=== PATIENT | male | born 1995 | race Caucasian/White ===

== ENCOUNTER 2017-06-25 11:42 | Emergency (ER) | payer BC, OTHER ==
[2017-06-25 11:52] VITALS: BMI 36.5
[2017-06-25] MEDS ORDERED: NS 1000 ML 1,000 ML IV ONE ×2 (12:25→14:40)
--- NOTE | 2017-06-25 12:25 | DR.GENAD ---
HPI - PCP Primary Care Physician: sumit - Complaint/Symptoms Chief Complaint Doctors Comments: Patient is alert in NAD history as stated by chief complaint. Chief Complaint:: Patient c/o c/c/c symptoms for a week was seen by PCP and started on antibiotics- unsure of name and taking over the counter c/c/c meds. Patient states "I just can't breath" Self Treatment fo Chief Complaint: otc meds- cefdinir 300mg and dexilant dr 60mg - Source History Provided: Patient - Mode of Arrival Mode of Arrival: Ambulatory - Timing Onset of Chief Complaint: 06/19/17 PMH - PMH Past Medical History: Yes Past Medical History Comment: mrsa of stomach Past Surgical History: Yes Surgical History: Appendectomy, Cholecystectomy Past Surgical History Comment: left hip surgery - Family History History of Family Medical Conditions: Yes Family Medical History: Hypertension - Social History Does patient currently use any type of tobacco product: Yes Have you used tobacco products in the last 12 months: Yes Type of Tobacco Use: Smokeless Does any household member use tobacco: No Alcohol Use: Rarely Do you use any recreational Drugs:: No Lives With: Family Lives Where: Home - infectious screening In the last 2 months have you had wt loss of >10#?: NO Have you had fever, night sweats or hemotysis?: No Have you traveled outside the country in the last 6 months?: No Isolation: Standard ROS - Review of Systems Eyes: No Symptoms Reported ENTM: No Symptoms Reported Respiratoy: No Symptoms Reported Cardiovascular: No Symptoms Reported Gastrointestinal/Abdominal: No Symptoms Reported Genitourinary: No Symptoms Reported Neurological: No Symptoms Reported Musculoskeletal: No Symptoms Reported Integumentary: No Symptoms Reported Hematologic/Lymphatic: No Symptoms Reported Endocrine: No Symptoms Reported Psychiatric: No Symptoms Reported All Other Systems: Reviewed and Negative PE - Vital Signs Vitals: Temperature 97.8 F Pulse Rate 108 Respiratory Rate 18 Blood Pressure 147/96 O2 Sat by Pulse Oximetry 97 - General General Appearance: Alert, In No Apparent Distress - Head Head Exam: Normal Inspection, Atraumatic - Eyes Eye exam: Normal Appearance, PERRL, EOMI - ENT ENT Exam: Normal Exam External Ear Exam: Normal External Inspection TM/Canal Exam: Bilateral Normal Nose Exam: Normal Nose Exam, Sinus Tenderness Mouth Exam: Normal Inspection Throat Exam: Normal Inspection - Neck Neck Exam: Normal Inspection - Chest Chest Inspection: Normal Inspection - Respiratory Respiratory Exam: Normal Lung Sounds Bilat Respiratory Exam: Bilateral Clear to Auscultation - Cardiovascular Cardiovascular Exam: Regular Rate, Normal Rhythm - Abdominal Exam Abdominal Exam: Normal Inspection, Normal Bowel Sounds Abdominal Tenderness: negative: RUQ, RLQ, LUQ, LLQ, Epigastrium, Suprapubic, Diffuse, Mild, Moderate, Severe, Other - Extremities Extremities Exam: Normal Inspection, Full ROM - Back Back Exam: Normal Inspection, Full ROM - Neurologic Neurological Exam: Alert, Oriented X3, CN II-XII Intact - Psychiatric Psychiatric Exam: Normal Affect - Skin Skin Exam: Warm, Dry, Intact Course - Reevaluation 1st: Unchanged - Education/Counseling Education/Counseling: Family Educated On: Treatment, Diagnosis, Prognosis, Needs for Follow Up ROR - Labs Reviewed Laboratory: Influenza Type A (PCR) Negative (NEGATIVE) 06/25/17 12:32 Influenza Type B (PCR) Negative (NEGATIVE) 06/25/17 12:32 - Diagnosis Discharge Problem: Influenza-like illness - Discharge Plan Condition: Stable - Follow ups/Referrals Follow ups/Referrals: Sonu Chapman [Primary Care Provider] - 3 days - Instructions
[2017-06-25] MEDS ORDERED: TORADOL 30 MG VIAL IVP ONE (12:28)
[2017-06-25] MEDS ORDERED: NS 1000 ML 1,000 ML ONE ×2 (12:33→14:15)
[2017-06-25] MEDS ORDERED: TORADOL 30 MG VIAL ONE (12:33)
[2017-06-25 14:41] LABS: BASOPHILS # (AUTO) 0.1 X10^3/uL (0.0-0.1); EOSINOPHILS # (AUTO) 0.2 x10^3/uL (0.0-0.2); HEMOGLOBIN 16.3 g/dL (13.5-18.0); MONOCYTES # (AUTO) 0.6 x10^3/uL (0.3-0.8)
[2017-06-25 14:49] LABS: BLOOD UREA NITROGEN 11 mg/dL (7-18); CALCIUM 8.6 mg/dL (8.5-10.1); CARBON DIOXIDE 25.3 mmol/L (21-32); CHLORIDE 104 mmol/L (98-107); SODIUM 140 mmol/L (136-145); eGFR BLACK RACES > 60 (>60); eGFR NON BLACK RACES > 60 (>60)
--- NOTE | 2017-06-25 15:04 | RAD ---
Examination: Portable AP chest History: Cough cold and congestion Findings: Normal heart size with clear lungs and pleural spaces. Impression: No acute process demonstrated. Reported By:
[2017-06-25 15:11] LABS: BASOPHILS % (AUTO) 0.6 % (0.2-1.0); HEMATOCRIT 45.5 % (42.0-54.0); LYMPHOCYTES # (AUTO) 2.1 X10^3/uL (1.3-2.9); LYMPHOCYTES % (AUTO) 19.7 % (21.0-51.0); MEAN CORPUSCULAR HEMOGLOBIN 28.1 pg (27.0-34.0); MEAN CORPUSCULAR HGB CONC 35.8 g/dL (33.0-35.0); MEAN CORPUSCULAR VOLUME 78.6 fL (80.0-100.0); MEAN PLATELET VOLUME 8.2 fL (7.4-11.0); MONOCYTES % (AUTO) 5.5 % (0.0-13.0); NEUTROPHILS # (AUTO) 7.8 x10^3/uL (2.2-4.8); NEUTROPHILS % (AUTO) 72.2 % (42.0-75.0); PLATELET COUNT 311 X10^3/uL (150.0-450.0); RED BLOOD COUNT 5.79 X10^6/uL (4.7-6.0); RED CELL DISTRIBUTION WIDTH 12.6 % (11.6-16.5); WHITE BLOOD COUNT 10.8 X10^3/uL (3.6-10.0)
[2017-06-25 15:23] VITALS: BP 122/77
== END 2017-06-25 15:53 | disposition home or self-care (01) ==
LOC: ER 11:48
DX: R05 Cough (principal); R09.89 Other specified symptoms and signs involving the circulatory and respiratory systems; R42 Dizziness and giddiness; R07.89 Other chest pain
CPT/HCPCS: 36415; 71010; 80048; 85025; 86140; 87502; 93005; 93010; 96365; 96367; 96374; 99283; A4222; J1885

== ENCOUNTER 2017-07-13 09:47 | Observation (INO) | payer BC ==
[2017-07-13] MEDS ORDERED: TOPROL XL PO SCH (11:20)
[2017-07-13 11:37] LABS: BASOPHILS % (AUTO) 0.6 % (0.2-1.0); EOSINOPHILS # (AUTO) 0.2 x10^3/uL (0.0-0.2); EOSINOPHILS % (AUTO) 1.7 % (0.9-2.9); HEMATOCRIT 44.7 % (42.0-54.0); LYMPHOCYTES # (AUTO) 1.3 X10^3/uL (1.3-2.9); LYMPHOCYTES % (AUTO) 15.1 % (21.0-51.0); MEAN CORPUSCULAR HEMOGLOBIN 28.3 pg (27.0-34.0); MEAN CORPUSCULAR HGB CONC 35.7 g/dL (33.0-35.0); MEAN CORPUSCULAR VOLUME 79.3 fL (80.0-100.0); MEAN PLATELET VOLUME 8.1 fL (7.4-11.0); MONOCYTES # (AUTO) 0.6 x10^3/uL (0.3-0.8); MONOCYTES % (AUTO) 6.6 % (0.0-13.0); NEUTROPHILS # (AUTO) 6.7 x10^3/uL (2.2-4.8); PLATELET COUNT 275 X10^3/uL (150.0-450.0); RED BLOOD COUNT 5.63 X10^6/uL (4.7-6.0); WHITE BLOOD COUNT 8.8 X10^3/uL (3.6-10.0)
[2017-07-13 12:08] LABS: BLOOD UREA NITROGEN 9 mg/dL (7-18); CALCIUM 8.9 mg/dL (8.5-10.1); CARBON DIOXIDE 28.6 mmol/L (21-32); CHLORIDE 104 mmol/L (98-107); CREATININE 0.86 mg/dL (0.70-1.30); SODIUM 139 mmol/L (136-145); TROPONIN I < 0.02 ng/mL (0-1.5); eGFR BLACK RACES > 60 (>60); eGFR NON BLACK RACES > 60 (>60)
[2017-07-13 12:12] LABS: ALANINE AMINOTRANSFERASE 54 Units/L (12-78); ALBUMIN 3.8 g/dL (3.4-5.0); ALKALINE PHOSPHATASE 75 Units/L (46-116); ASPARTATE AMINO TRANSFERASE 32 Units/L (15-37); CKMB % 1.3 % (<4); CREATINE KINASE 75 Units/L (39-308); CREATINE KINASE MB < 1.0 ng/mL (0-4.0); MAGNESIUM 1.7 mg/dL (1.7-2.9); TOTAL PROTEIN 7.7 g/dL (6.4-8.2)
--- NOTE | 2017-07-13 13:11 | RAD ---
Examination: Portable AP chest History: Chest pain SOB Comparison 06/25/2017 Findings: Continued normal heart size with clear lungs and pleural spaces. Impression: No change; no acute findings. Reported By:
[2017-07-13] MEDS: LASIX IVP SCH ×2 (14:08→21:32)
[2017-07-13] MEDS: ASPIRIN PO SCH (14:08)
--- NOTE | 2017-07-13 14:45 | DR.UPDATE ---
H&P Update History and Physical Update: WAS SEEN IN THE OFFICE TODAY. A H&P WAS COMPLETED PRIOR TO ADMISSION. PATIENT HAS BEEN SEEN AND EXAMINED WITH NO CHANGES NOTED TO H&P. Changes noted: NO Yes with the following:
[2017-07-13 15:52] LABS: CKMB % 1.2 % (<4); CREATINE KINASE 83 Units/L (39-308); CREATINE KINASE MB < 1.0 ng/mL (0-4.0); TROPONIN I < 0.02 ng/mL (0-1.5)
[2017-07-13 18:32] VITALS: BMI 34.2
[2017-07-13] MEDS ORDERED: TYLENOL 325 MG TAB PO PRN (18:40)
[2017-07-13 19:42] LABS: CKMB % 1.2 % (<4); CREATINE KINASE 86 Units/L (39-308); CREATINE KINASE MB < 1.0 ng/mL (0-4.0); TROPONIN I < 0.02 ng/mL (0-1.5)
[2017-07-13] MEDS ORDERED: ULTRAM PO PRN (21:25)
[2017-07-13] MEDS ORDERED: NS 250 ML IV 250 ML IV ONE (22:17)
[2017-07-13] MEDS: PEPCID 20 MG IV PREMIX* 20 MG/50 ML BAG IV SCH (22:27)
[2017-07-14 07:08] LABS: ALANINE AMINOTRANSFERASE 53 Units/L (12-78); ALKALINE PHOSPHATASE 81 Units/L (46-116); ASPARTATE AMINO TRANSFERASE 25 Units/L (15-37); BLOOD UREA NITROGEN 15 mg/dL (7-18); CALCIUM 9.4 mg/dL (8.5-10.1); CARBON DIOXIDE 26.3 mmol/L (21-32); CHLORIDE 101 mmol/L (98-107); CHOL/HDL RATIO 4.8 (0.0-5.0); CHOLESTEROL 154 mg/dL (0-200); CREATININE 1.06 mg/dL (0.70-1.30); HDL CHOLESTEROL 32 mg/dL (40-60); SODIUM 139 mmol/L (136-145); TOTAL PROTEIN 8.3 g/dL (6.4-8.2); TRIGLYCERIDES 146 mg/dL (0-150); eGFR BLACK RACES > 60 (>60); eGFR NON BLACK RACES > 60 (>60)
[2017-07-14 07:29] LABS: BASOPHILS # (AUTO) 0.1 X10^3/uL (0.0-0.1); BASOPHILS % (AUTO) 0.8 % (0.2-1.0); EOSINOPHILS # (AUTO) 0.4 x10^3/uL (0.0-0.2); EOSINOPHILS % (AUTO) 3.6 % (0.9-2.9); HEMATOCRIT 48.1 % (42.0-54.0); LYMPHOCYTES # (AUTO) 2.7 X10^3/uL (1.3-2.9); LYMPHOCYTES % (AUTO) 26.9 % (21.0-51.0); MEAN CORPUSCULAR HEMOGLOBIN 28.1 pg (27.0-34.0); MEAN CORPUSCULAR HGB CONC 35.4 g/dL (33.0-35.0); MEAN CORPUSCULAR VOLUME 79.5 fL (80.0-100.0); MEAN PLATELET VOLUME 8.7 fL (7.4-11.0); MONOCYTES # (AUTO) 0.7 x10^3/uL (0.3-0.8); MONOCYTES % (AUTO) 7.2 % (0.0-13.0); NEUTROPHILS # (AUTO) 6.2 x10^3/uL (2.2-4.8); NEUTROPHILS % (AUTO) 61.5 % (42.0-75.0); PLATELET COUNT 308 X10^3/uL (150.0-450.0); RED BLOOD COUNT 6.06 X10^6/uL (4.7-6.0); RED CELL DISTRIBUTION WIDTH 13.3 % (11.6-16.5); WHITE BLOOD COUNT 10.1 X10^3/uL (3.6-10.0)
--- NOTE | 2017-07-14 07:32 | RAD ---
Chest AP portable Indication: Chest pain and dyspnea Comparison: 07/13/2017. Findings: There is no pneumothorax, effusion or consolidation. Monitoring leads obscure minimal detai l. Heart size is normal. Impression: No acute chest process or change from the prior. Reported By:
[2017-07-14 08:15] VITALS: BP 123/68
[2017-07-14] MEDS: LASIX IVP SCH (09:25)
[2017-07-14] MEDS: PEPCID 20 MG IV PREMIX* 20 MG/50 ML BAG IV SCH (09:25)
[2017-07-14] MEDS: ASPIRIN PO SCH (09:26)
== END 2017-07-14 11:22 | disposition home or self-care (01) ==
LOC: OBS 09:47
PROVIDERS: ADMIT Internal Medicine; ATTEND Internal Medicine
DX: R07.89 Other chest pain (principal); R06.02 Shortness of breath; R53.1 Weakness; R00.2 Palpitations; K21.9 Gastro-esophageal reflux disease without esophagitis
CPT/HCPCS: 36415; 71045; 80053; 80061; 82550; 82553; 83735; 83880; 84484; 85025; 85610; 85730; 93005; 93306; 94760; A4222; S0028; G0378; J1940

== ENCOUNTER → 2017-10-24 | Outpatient (CLI) | payer BC ==
--- NOTE | 2017-10-24 08:56 | CT ---
STUDY: CTA CHEST WITH CONTRAST History: Chest pain. Elevated heart rate. Denies shortness of breath. Symptoms ongoing for few month s.. Comparison: Chest radiograph July 13, 2017. Technique: Multiple axial images of the chest were obtained from the thoracic inlet to the upper abdo men after the administration of IV contrast. Image acquisition was optimized for evaluation of pulmon nuzhat arterial system. 3D, coronal and sagittal reformatted images were performed and reviewed. Automat ed exposure control (AEC) was utilized to adjust the MA and/or kV. Findings: There is no evidence of abnormal filling defect in the main pulmonary arteries and their major branch es to indicate presence of acute pulmonary thromboembolic disease. There is no evidence of aortic ane urysm or dissection. There is no significant pericardial effusion. Shotty lymph nodes, likely reactiv e, are noted in the mediastinum. No pathologically enlarged lymph nodes are identified. There is no evidence of consolidation, significant infiltrate, effusion or pneumothorax. The gallbladder surgically absent. The visualized solid visceral organs in the upper abdomen are othe rwise unremarkable. IMPRESSION: 1. No evidence of acute pulmonary thromboembolic disease. 2. No evidence of acute pulmonary abnormality. Reported By:
== END ==
LOC: RAD 08:03
PROVIDERS: ATTEND Physician Assistant
DX: R07.89 Other chest pain (principal)
CPT/HCPCS: 71275; A4222